=== PATIENT | male | born 1955 | race Caucasian/White ===

== ENCOUNTER → 2019-11-27 16:09 | Outpatient (CLI) | payer MEDICARE, SELFPAY ==
--- NOTE | ~2019-11-27 | XR_ITS ---
XR thoracic spine 3V DATE: 11/27/2019 16:26 INDICATION: Thoracic back pain TECHNIQUE: AP, lateral, swimmer views COMPARISON: None FINDINGS: There is mild to moderate dextroscoliosis and degenerative spurring of the thoracic spine. No fracture or dislocation or bone destruction or paraspinal soft tissue thickening. The thoracic ped icles are intact. Surgical clips overlie the right upper quadrant, likely due to cholecystectomy. IMPRESSION: Mild to moderate dextroscoliosis and degenerative spurring Reviewed, dictated and finalized at location B. UITER SPECIALIST
== END ==
PROVIDERS: Visit Provider Family Medicine
DX: M54.6 Pain in thoracic spine (principal)
CPT/HCPCS: 72072

== ENCOUNTER 2021-11-23 09:02 | Emergency (ER) | payer MEDICARE, SELFPAY ==
--- NOTE | ~2021-11-23 | XR_ITS ---
EXAMINATION: XR chest 2V EXAM DATE: 11/23/2021 14:02 INDICATION: Cough, body aches, fever. TECHNIQUE: Frontal and lateral projections of the chest obtained and reviewed. There is no prior inderjit dy for comparison. FINDINGS: Small to moderate amount of bilateral ill-defined acute airspace disease, could be COVID p neumonia, other infectious etiology, or edema. Heart is upper limits of normal in size. No pneumothor ax or pleural effusion. Mild thoracic dextroscoliosis. IMPRESSION: Small to moderate amount of ill-defined pneumonia or edema. Reviewed, dictated and finalized at location A. SERVICE EDUCATION TEACHER
[2021-11-23 09:05] VITALS: BP 138/84; PULSE 93; RESP 19; TEMP 37.7; O2SAT 95
--- NOTE | 2021-11-23 13:52 | ED.GENADULT ---
HPI - General Adult General Chief complaint: Fever Stated complaint: Body aches,SOB Time Seen by Provider: 11/23/21 13:47 History of Present Illness HPI narrative: Patient is a 66-year-old male who comes to the ED today because he is feeling sick . Patient reports that for the last 3 days he has been having generalized body aches, generalized headache, fevers, cough, sinus congestion and fatigue. Notes that he was having some dysuria type symptoms last night that has since resolved. Denies any symptoms or concerns. Has not received his COVID-19 vaccine. He did have a Covid infection in spring 2020. Related Data Home Medications Medication Instructions Recorded Confirmed aspirin 81 mg tablet,delayed 81 mg PO DAILY 10/18/19 10/13/21 release linaclotide 290 mcg capsule 290 mcg PO DAILY 10/18/19 10/13/21 melatonin 5 mg tablet 5 mg PO .QHS tablet 10/18/19 10/13/21 nystatin 100,000 unit/gram topical 1 applic TOPICAL BID 10/18/19 10/13/21 cream cyanocobalamin (vitamin B-12) 1,000 mcg PO DAILY 10/13/21 10/13/21 1,000 mcg tablet Allergies Allergy/AdvReac Type Severity Reaction Status Date / Time Contrast Media Allergy Unknown HIVES Uncoded 03/13/11 13:38 NFA Allergy Unknown Uncoded 05/15/03 14:42 NKA Allergy Unknown Uncoded 05/15/03 14:42 NA Allergy Uncoded 03/06/09 15:26 Review of Systems Constitutional: Constitutional: Reports as per HPI, Reports chills, Reports fever(s), Denies night sweats and Denies weakness Cardiovascular: Cardiovascular: Denies chest pain, Denies edema, Denies leg edema, Denies dyspnea and Denies orthopnea Respiratory: Respiratory: Reports as per HPI, Reports cough and Denies dyspnea Gastrointestinal: Gastrointestinal: Denies abdominal pain, Denies constipation, Denies diarrhea, Denies nausea and Denies vomiting Musculoskeletal: Musculoskeletal: Denies abnormal gait, Denies back pain, Reports myalgias, Denies numbness and Denies tingling Neurologic: Denies Abnormal speech present, Denies abnormal gait, Denies numbness, Denies tingling and Denies weakness Psychiatric: Psychiatric: Denies homicidal ideation and Denies suicidal ideation [facility] Past Medical History Medical History (Updated 11/23/21 @ 14:27 by Pineda Dumont PA-C) Acute bronchitis BMI 35.0-35.9,adult BMI 36.0-36.9,adult BMI 37.0-37.9, adult CHF (congestive heart failure) Claudication of both lower extremities COVID-19 (12/09/20) Exposure to COVID-19 virus Mild chronic obstructive pulmonary disease Mixed hyperlipidemia total cholesterol 164, HDL 37, triglycerides 272 LDL 91 on 09/09/2021 Nail fungus Polycythemia Right-sided thoracic back pain Seasonal allergic rhinitis Vitamin B12 deficiency anemia level low at 300 on 09/09/2021 Family History Family History (Updated 04/26/19 @ 16:50 by DOCTOR UNKNOWN) Grandparent Diabetes mellitus Mother Family history of cardiovascular disease, Onset Age: 82 Family history of Alzheimer's disease Father Family history of cardiovascular disease Family history of malignant neoplasm, Onset Age: 90 Sibling Family history of lung cancer Social History Social History Smoking status: Former smoker Alcohol intake: never Substance use: never Substance use type: does not use Exam Const: General: cooperative, healthy appearing, comfortable, no acute distress, well developed, alert, awake and Physically active Orientation/consciousness: patient oriented x3 HENMT: Head: normal to inspection, normocephalic and atraumatic Ears: external ears normal General nose exam: Normal external nose present Eyes: Pupils: Equal, round and reactive pupils present EOM: EOMs intact bilaterally Neck: Neck: normal visual inspection Chest: Chest palpation & inspection: normal inspection of the chest and no tenderness Resp: Effort & Inspection: normal respiratory effort and able to sp
[2021-11-23 14:11] LABS: Basophils Percent Auto 0.7 % (0.2-1.2); Eosinophils Percent Auto 0.5 % (0-4.4); Hematocrit 47.1 % (42.0-52.0); Immature Granulocyte Absolute 0.02 K/mm3 (0.00-0.031); Immature Granulocyte Percent A 0.3 % (0-0.5); Immature Platelet Fraction Pct 3.6 % (0.9-11.2); Lymphocytes Absolute Auto 0.94 K/mm3 (0.9-3.2); Mean Corpuscular Hemoglobin 31.1 pg (26-34); Mean Corpuscular Volume 91.5 fl (80-100); Mean Platelet Volume 10.1 fl (7.4-10.4); Monocytes Absolute Auto 0.8 K/mm3 (0.1-0.6); Monocytes Percent Auto 13.5 % (2.6-8.5); Neutrophils Absolute Auto 4.1 K/mm3 (1.3-6.7); Platelet Count Result 140 k/mm3 (150-375); Red Blood Count 5.15 M/mm3 (4.6-6.20); Red Cell Distribution Width 13.8 % (11.5-14.5); White Blood Count 5.9 K/mm3 (4.5-10.0)
[2021-11-23 14:17] LABS: Alanine Aminotransferase 21 U/L (4-50); Albumin Level 4.3 g/dL (3.5-5.1); Alkaline Phosphatase 75 U/L (38-126); Anion Gap 10 mmol/L (8-16); Aspartate Amino Transferase 27 U/L (17-59); Blood Urea Nitrogen 13 mg/dL (9-20); Calcium 8.9 mg/dL (8.4-10.2); Carbon Dioxide 22 mmol/L (22-30); Chloride 104 mmol/L (98-107); Estimated CRCL calculation 72 ml/min; Estimated Glomerular Filt Rate 55; Glucose 98 mg/dL (65-110); Potassium 3.7 mmol/L (3.4-5.0); Sodium 136 mmol/L (137-145)
[2021-11-23 14:34] LABS: Add Urine Microscopic? YES; Appearance Urine Clear (Clear); Bilirubin Urine Negative (Negative); Blood Urine 2+ (Negative); Color Urine Yellow (Yellow); Glucose Urine UA Negative (Negative); Ketones Urine Negative (Negative); Leukocyte Esterase Ur Negative LEU/UL (Negative); Mucus Urine Few /lpf; Nitrate Urine Negative (Negative); Protein Urine 1+ mg/dL (Negative); Specific Grav Ur 1.021 (1.001-1.035); Squamous Epithelial Cell Urine Rare /hpf (Few); WBC Urine 0-3 /hpf
[2021-11-23 17:06] VITALS: BP 131/91; PULSE 82; RESP 20; TEMP 37; O2SAT 94
[2021-11-24 13:42] LABS: SARS-CoV-2 RNA PCR Positive
== END 2021-11-23 17:40 | disposition home or self-care (01) ==
LOC: ANHED 17:25
PROVIDERS: Physician Assistant Medical; PCP Family Medicine
DX: U07.1 COVID-19 (principal); J12.82 Pneumonia due to coronavirus disease 2019; I50.9 Heart failure, unspecified; Z86.16 Personal history of COVID-19; J44.9 Chronic obstructive pulmonary disease, unspecified; E78.2 Mixed hyperlipidemia; D51.9 Vitamin B12 deficiency anemia, unspecified; Z87.891 Personal history of nicotine dependence; Z79.82 Long term (current) use of aspirin
CPT/HCPCS: 36415; 71046; 80053; 81001; 85025; 85055; 99283; C9803; U0003; U0005

== ENCOUNTER 2021-11-27 08:37 | Outpatient (RCR) | payer MEDICARE, SELFPAY ==
[2021-11-27 13:53] VITALS: BP 126/78; PULSE 80; TEMP 36.4; O2SAT 94
[2021-11-27] MEDS: diphenhydrAMINE HCl CAP 25 MG CAPSULE PO (13:56)
[2021-11-27] MEDS: ACETAMINOPHEN 325 MG TABLET 650 MG PO (13:56)
[2021-11-27] MEDS: FAMOTIDINE 20 MG TABLET PO (13:56)
[2021-11-27 15:30] VITALS: BP 138/82; PULSE 96; O2SAT 96
== END 2021-11-27 17:00 ==
LOC: AMCINF 08:37
PROVIDERS: PCP Family Medicine; Referring Provider Family Medicine; Visit Provider Internal Medicine Hematology & Oncology
DX: U07.1 COVID-19 (principal); I10 Essential (primary) hypertension; J44.9 Chronic obstructive pulmonary disease, unspecified
CPT/HCPCS: A9270; M0247; Q0247

== ENCOUNTER 2021-12-29 00:35 | Day surgery (SDC) | payer MEDICARE, SELFPAY ==
[2021-12-16 13:40] VITALS: BMI 34.1
--- NOTE | 2021-12-28 17:39 | PM.HPGS ---
History of Present Illness History of Present Illness Consent: Risks, benefits, and alternatives have been discussed and questions answered. Patient agrees to proceed with procedure. Chief complaint: hx of colon polyps Narrative: Med Murillo is a 66 year old male referred for colon cancer screening. He had 2 tubular adenmas removed 10 years ago. he states that at [address] Patel was unable to remove a polyp that he could not reach and therefore he was referred to someone at [facility]. Apparently that time his last colonoscopy the entire colon could not be visualized and the patient states that had something to do with him snoring Review of Systems Review of Systems: All systems reviewed & are unremarkable except as noted in HPI and below PMFSH Past Medical History Medical History AAA (abdominal aortic aneurysm) Acute bronchitis BMI 32.0-32.9,adult BMI 35.0-35.9,adult BMI 36.0-36.9,adult BMI 37.0-37.9, adult CHF (congestive heart failure) EF 55% Claudication of both lower extremities COPD (chronic obstructive pulmonary disease) COVID-19 (12/09/20) COVID-19 (11/20/21) positive test on 11/23/2021. Second episode. Exposure to COVID-19 virus Hypertension Mild chronic obstructive pulmonary disease Mixed hyperlipidemia total cholesterol 164, HDL 37, triglycerides 272 LDL 91 on 09/09/2021 Nail fungus Polycythemia Right-sided thoracic back pain Seasonal allergic rhinitis Vitamin B12 deficiency anemia level low at 300 on 09/09/2021 Family History Family History Grandparent Diabetes mellitus Mother Family history of cardiovascular disease, Onset Age: 82 Family history of Alzheimer's disease Father Family history of cardiovascular disease Family history of malignant neoplasm, Onset Age: 90 Sibling Family history of lung cancer Social History Social History Smoking status: Former smoker Alcohol intake: never Substance use: never Substance use type: does not use Living arrangements: with family Meds Home Medications and Allergies Home Medications Medication Instructions Recorded Confirmed Type aspirin 81 mg tablet,delayed 81 mg PO DAILY 10/18/19 12/16/21 History release linaclotide 290 mcg capsule 290 mcg PO DAILY 10/18/19 12/16/21 History melatonin 5 mg tablet 5 mg PO .QHS tablet 10/18/19 12/16/21 History nystatin 100,000 unit/gram topical 1 applic TOPICAL BID 10/18/19 12/16/21 History cream fluocinonide 0.05 % topical 1 applic TOPICAL BID #30 gm 06/28/20 12/16/21 Rx ointment fluticasone propionate 50 1 spray INTRANASAL BID PRN #16 g 01/01/21 12/16/21 Rx mcg/actuation nasal spray,suspension trazodone 50 mg tablet 25 mg PO .QHS #90 tablet 05/08/21 12/16/21 Rx lisinopril 20 mg tablet 20 mg PO DAILY #30 tablet 06/25/21 12/16/21 Rx metoprolol succinate 25 mg 25 mg PO DAILY #90 tablet 07/21/21 12/16/21 Rx tablet,extended release 24 hr cyanocobalamin (vitamin B-12) 1,000 mcg PO DAILY 10/13/21 12/16/21 History 1,000 mcg tablet terbinafine HCl 250 mg tablet 250 mg PO DAILY #90 tablet 10/13/21 12/16/21 Rx duloxetine [Cymbalta] 60 mg PO DAILY 12/16/21 12/16/21 History furosemide [Lasix] 20 mg PO QAM PRN 12/16/21 12/16/21 History Allergies Allergy/AdvReac Type Severity Reaction Status Date / Time Contrast Media Allergy Unknown HIVES Uncoded 11/27/21 14:01 Exam Resp: Auscultation: clear to auscultation bilaterally Cardio: Rate: regular rate Rhythm: regular rhythm GI: GI Palp: Yes Soft to palpation and No Tenderness to palpation present (GI) Assessment and Plan Assessment and plan (1) Colon cancer screening: Code(s): Z12.11 - Encounter for screening for malignant neoplasm of colon Status: Acute Assessment and Plan: Colonoscopy with possible biop
[2021-12-29 08:41] VITALS: BP 120/85; PULSE 93; RESP 18; TEMP 36.3; O2SAT 97
[2021-12-29] MEDS: LACTATED RINGERS 1,000 ML 150 ML IV CONT (08:49)
--- NOTE | 2021-12-29 08:59 | WPDANESEPPF ---
Anes - Initial Pre Proc Eval Procedure: Operation Date: 12/29/21 09:30 Proposed Procedures p Screening Colonoscopy - Wale Cedeño MD Date/Time: 12/29/21 08:59 Surgeon: Wale Cedeño MD Pre Op Diagnosis: hx of colon polyps Patient Data Age: 66 Gender: M Height: 1.93 m Weight: 123.4 kg Last Vital Signs Temp 36.3 C L 12/29/21 08:41 Pulse 93 12/29/21 08:41 Resp 18 12/29/21 08:41 BP 120/85 12/29/21 08:41 Pulse Ox 97 12/29/21 08:41 Allergies Allergy/AdvReac Type Severity Reaction Status Date / Time Contrast Media Allergy Unknown HIVES Uncoded 11/27/21 14:01 Home Medications Medication Instructions Recorded Confirmed Type aspirin 81 mg tablet,delayed 81 mg PO DAILY 10/18/19 12/16/21 History release linaclotide 290 mcg capsule 290 mcg PO DAILY 10/18/19 12/16/21 History melatonin 5 mg tablet 5 mg PO .QHS tablet 10/18/19 12/16/21 History nystatin 100,000 unit/gram topical 1 applic TOPICAL BID 10/18/19 12/16/21 History cream fluocinonide 0.05 % topical 1 applic TOPICAL BID #30 gm 06/28/20 12/16/21 Rx ointment fluticasone propionate 50 1 spray INTRANASAL BID PRN #16 g 01/01/21 12/16/21 Rx mcg/actuation nasal spray,suspension trazodone 50 mg tablet 25 mg PO .QHS #90 tablet 05/08/21 12/16/21 Rx lisinopril 20 mg tablet 20 mg PO DAILY #30 tablet 06/25/21 12/16/21 Rx metoprolol succinate 25 mg 25 mg PO DAILY #90 tablet 07/21/21 12/16/21 Rx tablet,extended release 24 hr cyanocobalamin (vitamin B-12) 1,000 mcg PO DAILY 10/13/21 12/16/21 History 1,000 mcg tablet terbinafine HCl 250 mg tablet 250 mg PO DAILY #90 tablet 10/13/21 12/16/21 Rx duloxetine [Cymbalta] 60 mg PO DAILY 12/16/21 12/16/21 History furosemide [Lasix] 20 mg PO QAM PRN 12/16/21 12/16/21 History Patient hx anesthesia problems: none Family hx anesthesia problems: none Results Review: All pre-operative results and documents have been reviewed as part of the pre-operative evaluation. [facility] Past Medical History Medical History (Updated 12/29/21 @ 07:38 by Pineda Morley DO) AAA (abdominal aortic aneurysm) Acute bronchitis BMI 32.0-32.9,adult BMI 35.0-35.9,adult BMI 36.0-36.9,adult BMI 37.0-37.9, adult CHF (congestive heart failure) EF 55% Claudication of both lower extremities COPD (chronic obstructive pulmonary disease) COVID-19 (12/09/20) COVID-19 (11/20/21) positive test on 11/23/2021. Second episode. Exposure to COVID-19 virus Hypertension Mild chronic obstructive pulmonary disease Mixed hyperlipidemia total cholesterol 164, HDL 37, triglycerides 272 LDL 91 on 09/09/2021 Nail fungus Polycythemia Right-sided thoracic back pain Seasonal allergic rhinitis Vitamin B12 deficiency anemia level low at 300 on 09/09/2021 Family History Family History (Updated 04/26/19 @ 16:50 by DOCTOR UNKNOWN) Grandparent Diabetes mellitus Mother Family history of cardiovascular disease, Onset Age: 82 Family history of Alzheimer's disease Father Family history of cardiovascular disease Family history of malignant neoplasm, Onset Age: 90 Sibling Family history of lung cancer Social History Social History Smoking status: Former smoker Alcohol intake: never Substance use: never Substance use type: does not use Living arrangements: with family Kamaljit Kendrick Final PreProcedure Day of Procedure 12/29/21 08:59 Patient weight: obese Heart: regular rate and rhythm Lungs: clear to auscultation and normal air movement Airway: Mallampati scale class II Neurological: alert and oriented Last oral intake: >/= 8 hours ASA classification: IV Emergent: no Anesthetic plan: proceed Anesthesia type and monitoring: general GIVS and standard monitoring Results Review: All pre-operative results and documents have been reviewed as part of the pre-operative evaluation. Informed Consent: The patient's anesthetic
[2021-12-29 09:46] VITALS: BP 108/77; PULSE 79; RESP 18; O2SAT 92
[2021-12-29 09:56] VITALS: BP 113/78; PULSE 74; RESP 18; O2SAT 93
[2021-12-29 10:04] VITALS: BP 120/87; PULSE 75; RESP 18; O2SAT 95
== END 2021-12-29 10:28 | disposition home or self-care (01) ==
PROVIDERS: PCP Family Medicine; Visit Provider Internal Medicine Gastroenterology
PROC: 0DJD8ZZ Inspection of Lower Intestinal Tract, Via Natural or Artificial Opening Endoscopic (ICD-10-PCS; CPT 45378; principal; 2021-12-29 09:30)
DX: Z12.11 Encounter for screening for malignant neoplasm of colon (principal); K63.5 Polyp of colon; I11.0 Hypertensive heart disease with heart failure; I50.9 Heart failure, unspecified; J44.9 Chronic obstructive pulmonary disease, unspecified; E78.2 Mixed hyperlipidemia; D51.3 Other dietary vitamin B12 deficiency anemia; Z86.16 Personal history of COVID-19; I71.4 Abdominal aortic aneurysm, without rupture; Z79.82 Long term (current) use of aspirin; E66.9 Obesity, unspecified; Z68.33 Body mass index [BMI] 33.0-33.9, adult; Z87.891 Personal history of nicotine dependence
CPT/HCPCS: 45385; J2704; J7120

== ENCOUNTER 2022-12-29 10:54 | Emergency (ER) | payer MEDICARE, SELFPAY ==
[2022-12-29 11:07] VITALS: BP 130/89; PULSE 65; RESP 20; TEMP 36.4; O2SAT 97
--- NOTE | 2022-12-29 11:08 | ED.LOWEXIN ---
HPI - Extremity Injury (Lower) General Chief Complaint: Extremity Problem,Nontraumatic Stated Complaint: Rt Foot Pain Time Seen by Provider: 12/29/22 11:52 Source: patient, RN notes reviewed and old records reviewed Mode of arrival: ambulatory Limitations: no limitations History of Present Illness HPI Narrative: 59-year-old male presents to the [facility] with base of right great toe pain, swelling and redness for 2-3 days. reports that feels like a sharp pain in the MCT joint. Redness, swelling noted. Decreased range of motion. Sensation intact distal to pain. Capillary refill approximately 3 seconds Related Data Home Medications Medication Instructions Recorded Confirmed aspirin 81 mg tablet,delayed 81 mg PO DAILY 10/18/19 12/29/22 release (Adult Low Dose Aspirin) linaclotide 290 mcg capsule 290 mcg PO DAILY 10/18/19 12/29/22 (Linzess) nystatin 100,000 unit/gram topical 1 applic topical BID 10/18/19 12/29/22 cream cyanocobalamin (vitamin B-12) 1,000 mcg PO DAILY 10/13/21 12/29/22 1,000 mcg tablet furosemide 20 mg tablet (Lasix) 20 mg PO QAM PRN edema 12/16/21 12/29/22 Allergies Allergy/AdvReac Type Severity Reaction Status Date / Time Contrast Media Allergy Unknown HIVES Uncoded 11/27/21 14:01 Review of Systems Review of Systems: All systems reviewed & are unremarkable except as noted in HPI and below Constitutional: Constitutional: Reports no additional constitutional complaints Eyes: Eyes: Reports no additional eye complaints ENT: Reports system reviewed and no additional complaints, except as documented Cardiovascular: Cardiovascular: Reports no additional cardiovascular complaints, Denies chest pain and Denies dyspnea Respiratory: Respiratory: Reports no additional respiratory complaints, Denies chest congestion, Denies cough and Denies dyspnea Gastrointestinal: Gastrointestinal: Reports no additional gastrointestinal complaints, Denies abdominal pain, Denies nausea and Denies vomiting Musculoskeletal: Musculoskeletal: Reports as per HPI, Reports arthralgias ( right great toe) and Reports joint swelling ( right great toe) Integumentary/Breasts: Skin/Breast: Reports system reviewed and no additional complaints, except as docu Neurologic: Reports system reviewed and no additional complaints, except as documented Psychiatric: Psychiatric: Reports no additional psychiatric complaints Allergic/Immunologic: Allergic/Immunologic: Reports no additional allergic/immunologic complaints PMFSH Past Medical History Medical History AAA (abdominal aortic aneurysm) Acute bronchitis Acute non-recurrent maxillary sinusitis Ascending aortic aneurysm (~1987) 4.53 cm on ultrasound 01/14/2022 followed by information tech Bilateral chronic knee pain BMI 32.0-32.9,adult BMI 35.0-35.9,adult BMI 36.0-36.9,adult BMI 37.0-37.9, adult CHF (congestive heart failure) EF 55% Chronic neck pain Claudication of both lower extremities COPD (chronic obstructive pulmonary disease) COVID-19 (12/09/20) COVID-19 (11/20/21) positive test on 11/23/2021. Second episode. Exposure to COVID-19 virus Hypertension Mild chronic obstructive pulmonary disease Mixed hyperlipidemia total cholesterol 164, HDL 37, triglycerides 272 LDL 91 on 09/09/2021. Total cholesterol 196, triglycerides 199, HDL 43, LDL 121 on 09/11/2022. Nail fungus Obesity (BMI 30-39.9) Polycythemia Hemoglobin 16.7 with hematocrit 49.5 on 09/11/2022. Right-sided thoracic back pain Seasonal allergic rhinitis Vitamin B12 deficiency anemia level low at 300 on 09/09/2021. Normal at 488 on 09/11/2022. Family History Family History Grandparent Diabetes mellitus Mother Family history of cardiovascular disease, Onset Age: 82 Family history of Alzheimer's disease Father Family history of cardiovascular disease Family history of
== END 2022-12-29 12:02 | disposition home or self-care (01) ==
PROVIDERS: Emergency Provider Nurse Practitioner; PCP Family Medicine
DX: M10.9 Gout, unspecified (principal); I11.0 Hypertensive heart disease with heart failure; I50.9 Heart failure, unspecified; J44.9 Chronic obstructive pulmonary disease, unspecified; E78.2 Mixed hyperlipidemia; E66.9 Obesity, unspecified; Z68.33 Body mass index [BMI] 33.0-33.9, adult; E53.8 Deficiency of other specified B group vitamins; Z86.16 Personal history of COVID-19; Z79.82 Long term (current) use of aspirin
CPT/HCPCS: 99213; G0463

== ENCOUNTER 2023-05-19 13:39 | Outpatient (CLI) | payer MEDICARE, SELFPAY ==
--- NOTE | ~2023-05-19 | US_ITS ---
EXAMINATION: US art doppler w press LE BI DATE: 05/19/2023 15:28 INDICATION: Peripheral vascular disease TECHNIQUE: Segmental pressures and plethysmographic and Doppler waveforms of the brachial and lower e xtremity arteries were obtained. COMPARISON: None. FINDINGS: Right and left brachial artery pressures of 99 mm Hg and 99 mm Hg, respectively, are concordant (norm al difference <= 30 mmHg). The right and left high-thigh pressure indices are 1.48 and 1.38, respecti vely (normal > 1.2). The right ankle-brachial index (MARILEE) is 1.22 (normal >= 0.9-1). The right great toe-brachial index (T BI) is 0.28 (normal >= 0.6-0.8). The right lower extremity segmental pressure gradients are increased between the right above and [id number] popliteal artery (normal gradients <= 20-30 mmHg between adjacent levels on the same leg or the same levels on the two legs). Arterial waveforms are triphasic with brisk systolic upstrokes throughout the arteries of the right lower limb. The left MARILEE is 1.23. The left TBI is 0.96. The left lower extremity segmental pressure gradients are normal. Arterial waveforms are triphasic at the left posterior tibial artery and biphasic at the rem aining arteries with brisk systolic upstrokes throughout. IMPRESSION: 1. No significant arterial occlusive disease to the left lower limb with normal left MARILEE and TBI. 2. Normal right MARILEE but with moderately decreased right TBI. Triphasic arterial waveforms are brisk s ystolic upstrokes are seen throughout the right lower limb extending to the posterior tibial and dors tomas pedis arteries at the ankle suggesting the decreased right TBI is either artifactual or due to a rterial occlusive disease distal to the ankle. Reviewed, dictated and finalized at location A. IMPRESSION: 1. No significant arterial occlusive disease to the left lower limb with normal left MARILEE and TBI. 2. Normal right MARILEE but with moderately decreased right TBI. Triphasic arterial waveforms are brisk systolic upstrokes are seen throughout the right lower huang b extending to the posterior tibial and dorsalis pedis arteries at the ankle miranda ggesting the decreased right TBI is either artifactual or due to arterial occlu sive disease distal to the ankle.
== END 2023-05-19 13:40 | disposition home or self-care (01) ==
LOC: ANHIMG 13:53
PROVIDERS: PCP Family Medicine; Visit Provider Family Medicine
DX: I73.9 Peripheral vascular disease, unspecified (principal)
CPT/HCPCS: 93923